=== PATIENT | male | born 2005 | race Caucasian/White ===

== ENCOUNTER 2024-11-12 10:02 | Emergency (ER) | payer BC ==
[2024-11-12] MEDS ORDERED: ONDANSETRON 4 MG/2 ML VIAL ONE (10:26)
[2024-11-12] MEDS ORDERED: NA CHLORIDE 0.9% 1,000 ML ONE (10:26)
[2024-11-12] MEDS ORDERED: KETOROLAC 30 MG/ML INJ ONE (10:26)
[2024-11-12 10:51] LABS: Absolute Lymphocytes (CBC) 2.1 K/uL (0.7-4.9); Hematocrit 42.6 % (39.6-49.0); Hemoglobin 15.0 g/dL (13.6-17.9); MCH 30.5 pg (27.0-35.0); MCHC 35.2 g/dL (32.0-36.0); MCV 86.7 fL (80-100); MPV 7.2 fL (7.6-11.3); Nucleated RBC Absolute Count 0.0 (0-0); Nucleated Red Blood Cells % 0.0 % (0-0); RBC Red Blood Cell Count 4.92 M/uL (4.33-5.43); White Blood Count 7.30 thou/uL (4.3-10.9)
[2024-11-12 11:13] LABS: ALT/SGPT 27 U/L (16-61); AST/SGOT 16 U/L (15-37); Albumin 4.1 g/dL (3.4-5.0); Albumin/Globulin Ratio 1.2 (1.1-1.8); Alkaline Phosphatase 69 U/L (45-117); Anion Gap 9.2 mEq/L (5.0-15.0); BUN Blood Urea Nitrogen 14 mg/dL (7-18); Globulin 3.4 g/dL (2.3-3.5); Glucose Level 97 mg/dL (74-106); Lipase 22 U/L (13-75); Potassium 3.2 mEq/L (3.5-5.1)
--- NOTE | 2024-11-12 11:13 | RAD REPORT ---
EXAM: Abdominal exam Limited ultrasound CLINICAL HISTORY: Abdominal pain COMPARISON: None FINDINGS: A gallstone is not seen. Gallbladder wall not thickened. Biliary tree normal caliber IMPRESSION: No significant abnormalities displayed
[2024-11-12 11:16] LABS: Troponin High Sensitivity < 3.0 pg/mL (<58.9)
--- NOTE | 2024-11-12 11:18 | RAD REPORT ---
Procedure: Chest Single View HISTORY: Chest pain COMPARISON: none FINDINGS: The lungs appear clear of acute infiltrate. No significant pleural effusion noted. The heart is normal size. IMPRESSION: No acute abnormality is displayed.
--- NOTE | 2024-11-12 11:48 | ER ---
Nurse's Notes [facility] Name: Lalo Mooney Age: 19 yrs Sex: Male : 2005 Arrival Date: 11/12/2024 Time: 10:02 Bed 6 Private MD: Diagnosis: Dehydration Presentation: 11/12 10:17 Chief complaint: Patient states: abd pain, nausea/vomiting. aa5 10:17 Coronavirus screen: nausea, vomiting. Ebola Screen: Patient denies travel to an [facility] Ebola-affected area in the 21 days before illness onset. Initial Sepsis Screen: Does the patient meet any 2 criteria? No. Patient's initial sepsis screen is negative. Does the patient have a suspected source of infection? No. Patient's initial sepsis screen is negative. Risk Assessment: Do you want to hurt yourself or someone else? Patient reports no desire to harm self or others. Onset of symptoms was November 12, 2024. 10:17 Acuity: BEE 3 aa5 10:17 Method Of Arrival: Ambulatory aa Triage Assessment: 12:27 General: Appears in no apparent distress. Behavior is calm, cooperative, appropriate bp for age. Historical: - Allergies: 10:17 No Known Allergies; aa5 - Home Meds: 10:17 None [Active]; aa5 - PMHx: 10:17 Fatty Liver; aa5 - PSHx: 10:17 Appendectomy; aa5 - Immunization history:: Adult Immunizations unknown. - Infectious Disease History:: Denies. - Social history:: Smoking status: Reported history of juuling and/or vaping. Screenin:23 [facility] ED Fall Risk Assessment (Adult) History of falling in the last 3 months, bp including since admission No falls in past 3 months (0 pts) Confusion or Disorientation No (0 pts) Intoxicated or Sedated No (0 pts) Impaired Gait No (0 pts) Mobility Assist Device Used No (0 pt) Altered Elimination No (0 pt) Score/Fall Risk Level 0 - 2 = Low Risk Oriented to surroundings. Abuse screen: Denies threats or abuse. Denies injuries from another. Nutritional screening: No deficits noted. Tuberculosis screening: No symptoms or risk factors identified. Assessment: 10:20 General: SEE TRIAGE NOTE. bp 12:23 Reassessment: Patient appears in no apparent distress at this time. Patient is alert, bp oriented x 3, equal unlabored respirations, skin warm/dry/pink. Patient states symptoms have improved. Pain: Denies pain. GI: Bowel sounds present X 4 quads. Abd is soft and non tender X 4 quads. Vital Signs: 10:17 BP 122 / 67; Pulse 85; Resp 18 S; Temp 98.7(O); Pulse Ox 100% on R/A; Weight 72.57 kg aa5 (R); Height 5 ft. 7 in. (R); 12:22 BP 127 / 75; Pulse 79; Resp 16; Pulse Ox 100% ; bp 10:17 Body Mass Index 25.06 (72.57 kg, 170.18 cm) aa5 ED Course: 10:16 Patient arrived in ED. mr 10:16 Cam Anders FNP-C is PHCP. dr5 10:16 Audie Oreilly DO is Attending Physician. dr5 10:17 Arm band placed on. aa5 10:18 Triage completed. aa5 10:24 Kang Alejandro, RN is Primary Nurse. bp 10:40 Initial lab(s) drawn, by ky, sent to lab. EKG done, by ED staff, reviewed by Cam MACIAS. Inserted saline lock: 20 gauge in right forearm, using aseptic technique. Blood collected. Flushed with 10 mL NS. 10:50 US Abdomen Limited: RUQ please to r/o deshawn In Process Unspecified. EDMS 10:59 Chest Single View XRAY In Process Unspecified. EDMS 12:23 Patient has correct armband on for positive identification. bp 12:23 No provider procedures requiring assistance completed. IV discontinued, intact, bp bleeding controlled, No redness/swelling at site. Pressure dressing applied. Administered Medications: 10:39 Drug: TORadol - Ketorolac IVP 15 mg IVP once Route: IVP; Site: right forearm; bp 12:26 Follow up: Response: No adverse reaction bp 10:39 Drug: Ondansetron IVP 4 mg IVP once; over 2 minutes Route: IVP; Site: right forearm; bp 12:26 Follow up: Response: No adverse reaction bp 10:39 Drug: NS 0.9% IV 1000 ml IV at 1 bolus Per protocol; to be given as a bolus over 60 bp minutes Route: IV; Rate: 1 bolus; Site: right forearm; 12:26 Follow up: IV Status: Completed infusion bp Outcome: 11:47 Discharge ordered by . dr5 12:23 Discharged to home ambulatory, bp 12:23 Condition: stable 12:23 Discharge instructions given to patient, Instructed on discharge instructions, follow up and referral plans. Demonstrated understanding of instructions, follow-up care, 12:27 Patient left the ED. bp Signatures: Dispatcher [employer] EDMS Yamilka Adam, Reg Reg mr Ayleen Vásquez, RN RN aa5 Kang Alejandro RN RN bp Cam Anders, BREAD ROOM HAND-C BREAD ROOM HAND-Cdr5 Corrections: (The following items were deleted from the chart) 10:19 10:17 72.57 kg Reported; Height 5 ft. 7 in. Reported; BMI: 25.0; aa5 aa5
--- NOTE | 2024-11-12 11:48 | EDPHYS ---
Physician Documentation [facility] Name: Lalo Mooney Age: 19 yrs Sex: Male : 2005 Arrival Date: 11/12/2024 Time: 10:02 Bed 6 Private MD: ED Physician Audie Oreilly HPI: 11/12 10:52 This 19 yrs old Male presents to ER via Ambulatory with complaints of dr5 Abdominal Pain. 10:52 The patient presents with abdominal pain in the right upper quadrant. Onset: The dr5 symptoms/episode began/occurred this morning. Patient is a 19-year-old male with history of fatty liver coming in with right upper quadrant abdominal pain /right lower chest pain that started this morning. Patient reports that his pain is a 3 out of 10. Patient states that his pain started while getting into the truck going to work. Patient denies taking medication prior to arrival. Patient denies nausea, vomiting, diarrhea, constipation, or fever.. Historical: - Allergies: 10:17 No Known Allergies; aa5 - Home Meds: 10:17 None [Active]; aa5 - PMHx: 10:17 Fatty Liver; aa5 - PSHx: 10:17 Appendectomy; aa5 - Immunization history:: Adult Immunizations unknown. - Infectious Disease History:: Denies. - Social history:: Smoking status: Reported history of juuling and/or vaping. ROS: 10:52 Constitutional: as per hpi dr5 Exam: 10:52 Constitutional: This is a well developed, well nourished patient who is awake, alert, dr5 and in no acute distress. Head/Face: Normocephalic, atraumatic. Eyes: Pupils equal round and reactive to light, extra-ocular motions intact. Lids and lashes normal. Conjunctiva and sclera are non-icteric and not injected. Cornea within normal limits. Periorbital areas with no swelling, redness, or edema. Neck: Trachea midline, no thyromegaly or masses palpated, and no cervical lymphadenopathy. Supple, full range of motion without nuchal rigidity, or vertebral point tenderness. No Meningismus. Chest/axilla: Normal chest wall appearance and motion. Nontender with no deformity. No lesions are appreciated. Cardiovascular: Regular rate and rhythm with a normal S1 and S2. Normal PMI, no JVD. No pulse deficits. Respiratory: Lungs have equal breath sounds bilaterally, clear to auscultation. No rales, rhonchi or wheezes noted. No increased work of breathing, no retractions or nasal flaring. Back: No spinal tenderness. No costovertebral tenderness. Full range of motion. Skin: Warm, dry with normal turgor. Normal color with no rashes, no lesions, and no evidence of cellulitis. 10:52 Abdomen/GI: Inspection: abdomen appears normal, Bowel sounds: normal, active, Palpation: abdomen is soft and non-tender, in the No tenderness to palpation of RUQ. Negative Pacheco sign., Vital Signs: 10:17 BP 122 / 67; Pulse 85; Resp 18 S; Temp 98.7(O); Pulse Ox 100% on R/A; Weight 72.57 kg aa5 (R); Height 5 ft. 7 in. (R); 12:22 BP 127 / 75; Pulse 79; Resp 16; Pulse Ox 100% ; bp 10:17 Body Mass Index 25.06 (72.57 kg, 170.18 cm) aa5 MDM: 10:16 Medical Screening Exam initiated dr5 10:52 ED course: Will get blood work and ultrasound to rule out cholecystitis as well as dr5 x-ray to rule out bronchitis or other etiology in the lungs.. 11:30 ED course: Visited patient with lab results that I gave to him. Explained all results. dr5 Patient reports he is feeling better. Will allow patient to finish IV fluids prior to discharge.. 15:59 Differential diagnosis: cholecystitis, Cholelithiasis, gastritis, myocardia ischemia or dr5 infarction, Pneumonia. Data reviewed: vital signs, nurses notes, lab test result(s), amylase and lipase, cardiac enzymes, troponin i, CBC, white blood cell count, hemoglobin, hematocrit, platelets, electrolytes, sodium, potassium, chloride, serum bicarbonate, BUN, creatinine, serum glucose, EKG, radiologic studies, plain films, ultrasound. Consideration of Admission/Observation Escalation of care including admission/observation considered. Escalation considered patient found to have cholecystitis requiring surgery. I considered the following discharge prescriptions or medication management in the emergency department I discussed and recommended Over The Counter medications, Medications were administered in the Emergency Department. See MAR. Independent interpretation of the following test(s) in the Emergency Department X-Ray: My interpretation is Independent trepidation of x-ray did not reveal infiltrates concerning for pneumonia.. Care significantly affected by the following chronic conditions: Fatty liver. Care significantly affected by the following Social Determinants of Health: Poor access to healthcare and/or lack of insurance, Poor access to transportation, Problems related to employment. Counseling: I had a detailed discussion with the patient and/or guardian regarding the historical points, exam findings, and any diagnostic results supporting the discharge/admit diagnosis, the presence of at least one elevated blood pressure reading (>120/80) during this emergency department visit, lab results, radiology results, the need for outpatient follow up, for definitive care, a family practitioner, to return to the emergency department if symptoms worsen or persist or if there are any questions or concerns that arise at home. Medication response: Toradol relieved patient's pain. The symptoms have resolved, Zofran relieved the patient's nausea. Response to treatment: the patient's symptoms have resolved after treatment, the patient's condition has returned to base line. Special discussion: Based on the patient's Hx, exam, and Dx evaluation, there is no indication for emergent surgery or inpatient Tx. It is understood by the patient/guardian that if the Sx's persist or worsen they need to return immediately for re-evaluation. I discussed with the patient/guardian in detail that at this point there is no indication for admission to the hospital. It is understood, however, that if the symptoms persist or worsen the patient needs to return immediately for re-evaluation. Based on the history and exam findings, there is no indication for further emergent testing or inpatient evaluation. I discussed with the patient/guardian the need to see the primary care provider for further evaluation of the symptoms. ED course: Patient reports he so much better. All labs and diagnostics were printed and given to patient. All questions answered. Strict ER precautions given. Recommend patient follow-up with primary care doctor.. 11/12 10:23 Order name: CBC with Diff; Complete Time: 10:11/12 10:23 Order name: CMP; Complete Time: :11/12 10:23 Order name: Lipase; Complete Time: :11/12 10:23 Order name: Troponin High Sensitivity; Complete Time: :11/12 10:23 Order name: US Abdomen Limited: RUQ please to r/o deshawn; Complete Time: 11:17 dr5 11/12 10:23 Order name: Chest Single View XRAY; Complete Time: 11:19 dr5 11/12 10:23 Order name: EKG; Complete Time: 10: dr5 11/12 10:23 Order name: IV Saline Lock; Complete Time: 10:40 dr5 11/12 10:23 Order name: Labs collected and sent; Complete Time: 10:40 dr5 11/12 10:23 Order name: EKG - Nurse/Tech; Complete Time: 10:39 dr5 EC:36 Rate is 71 beats/min. Rhythm is regular. QRS [place] is Normal. RI interval is normal at dr5 194 msec. QRS interval is normal at 100 msec. QT interval is normal at 382 msec. Clinical impression: Normal ECG and No evidence of ischemia. Administered Medications: 10:39 Drug: TORadol - Ketorolac IVP 15 mg IVP once Route: IVP; Site: right forearm; bp 12:26 Follow up: Response: No adverse reaction bp 10:39 Drug: Ondansetron IVP 4 mg IVP once; over 2 minutes Route: IVP; Site: right forearm; bp 12:26 Follow up: Response: No adverse reaction bp 10:39 Drug: NS 0.9% IV 1000 ml IV at 1 bolus Per protocol; to be given as a bolus over 60 bp minutes Route: IV; Rate: 1 bolus; Site: right forearm; 12:26 Follow up: IV Status: Completed infusion bp Disposition: 19:22 I was immediately available on-site in the Emergency Department for consultation in the ms3 care of the patient. Disposition Summary: 11/12/24 11:47 Discharge Ordered Notes: Location: Home dr5 Condition: Stable dr5 Diagnosis - Dehydration dr5 Followup: dr5 - With: Emergency Department - When: As needed - Reason: Worsening of condition Followup: dr5 - With: Private Physician - When: 1 - 2 days - Reason: Recheck today's complaints, Continuance of care, Re-evaluation by your physician Discharge Instructions: - Discharge Summary Sheet dr5 - Dehydration, Adult dr5 Forms: - Work release form dr5 - Medication Reconciliation Form dr5 - Patient Portal Instructions dr5 - Leadership Thank You Letter dr5 Signatures: Dispatcher [employer] Ayleen De La Torre, RN RN aa5 Kang Alejandro RN RN bp Audie Oreilly, DO DO ms3 Anders, Cam, A[employer]ULT[employer] FARMER-C AQUACULTURE FARMER-Cdr5 Corrections: (The following items were deleted from the chart) 10:23 10:23 Chest Single View+[email or web address] ordered. EDMS EDMS
[2024-11-12 13:07] VITALS: TEMP 98.7; O2SAT 100
[2024-11-12 13:08] VITALS: BP 127/75
== END 2024-11-12 12:27 | disposition home or self-care (01) ==
LOC: ER 10:02
DX: E86.0 Dehydration (principal); K76.0 Fatty (change of) liver, not elsewhere classified
CPT/HCPCS: 96361; 93005; 85025; 36415; 84484; 83690; 80053; 71045; 76705; 96375; 96374; 99284; J2405; J7030